=== PATIENT | female | born 1995 | race Caucasian/White ===

== ENCOUNTER 2017-01-12 11:04 | Emergency (ER) | payer OTHER ==
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
[2017-01-12 11:18] VITALS: BP 121/73; RESP 18; TEMP 98.1
[2017-01-12 11:57] VITALS: PULSE 78; O2SAT 96
== END 2017-01-12 11:54 | disposition home or self-care (01) ==
LOC: EDUNIT#
DX: S20.219A Contusion of unspecified front wall of thorax, initial encounter (principal); V89.2XXA Person injured in unspecified motor-vehicle accident, traffic, initial encounter; Y92.410 Unspecified street and highway as the place of occurrence of the external cause